=== PATIENT | male | born 1960 | race African-American/Black ===

== ENCOUNTER → 2024-06-27 | Day surgery (SDC) | payer MEDICAID ==
[~2024-06-27] VITALS: Ht 175.3 cm; Wt 93.4 kg
[~2024-06-27] MED LIST: BALANCED SALT IRRIG SOLN 15ML ONE; BALANCED SALT IRRIG SOLN COMB1 500ML OP NR; CYCLOPENTOLATE HCL 1% OPHTH DROPS 2ML LEFTEYE SCH; DULA1.5P SQ; EMPA25TA PO; GLIP5TAB22 PO; HYALURONATE SODIUM 10MG/ML 0.55ML SYRINGE IO ONE; HYDROMORPHONE HCL/PF 1MG/ML INJ IV PRN; METF-416 PO; MIDAZOLAM HCL 2 MG/2 ML VIAL ONE; ONDANSETRON HCL 4MG/2ML INJ IV PRN; PHENYLEPHRINE HCL 10% OPHTH DROPS 5ML LEFTEYE SCH; PROPOFOL 200MG/20ML VIAL IV ONE; SODIUM CHLORIDE 0.9% 1,000 ML IV SCH; SODIUM CHLORIDE 0.9% 500 ML IV NR; TROPICAMIDE 1% OPHTH DROPS 15ML LEFTEYE SCH; TRYPAN BLUE 0.5 ML DISP.SYRIN IO ONE
[2024-06-27] MEDS: SODIUM CHLORIDE 0.9% 500 ML IV ONE (11:39)
== END | disposition home or self-care (01) ==
LOC: OR 10:56
PROVIDERS: ATTEND Ophthalmology
DX: E11.36 Type 2 diabetes mellitus with diabetic cataract (principal); H25.89 Other age-related cataract; Z79.84 Long term (current) use of oral hypoglycemic drugs; Z79.899 Other long term (current) drug therapy; Z98.890 Other specified postprocedural states
CPT/HCPCS: 66984; 82962; J3490 ×2; J2003; J2250; J2704; Q9957; V2632

== ENCOUNTER → 2025-01-09 | Day surgery (SDC) | payer MEDICAID ==
[~2025-01-09] VITALS: Ht 175.3 cm; Wt 93.4 kg
[~2025-01-09] MED LIST changes: +ACETAZOLAMIDE SODIUM 500MG/VIAL IV ONE; -BALANCED SALT IRRIG SOLN 15ML ONE; -BALANCED SALT IRRIG SOLN COMB1 500ML OP NR; -CYCLOPENTOLATE HCL 1% OPHTH DROPS 2ML LEFTEYE SCH; -HYDROMORPHONE HCL/PF 1MG/ML INJ IV PRN; -MIDAZOLAM HCL 2 MG/2 ML VIAL ONE; -ONDANSETRON HCL 4MG/2ML INJ IV PRN; -PHENYLEPHRINE HCL 10% OPHTH DROPS 5ML LEFTEYE SCH; -SODIUM CHLORIDE 0.9% 500 ML IV NR; +TRIAMCINOLONE ACETONIDE 40MG/ML 1ML VIAL ONE; -TROPICAMIDE 1% OPHTH DROPS 15ML LEFTEYE SCH; -TRYPAN BLUE 0.5 ML DISP.SYRIN IO ONE
== END | disposition home or self-care (01) ==
LOC: OR 06:57
PROVIDERS: ATTEND Ophthalmology
DX: E11.39 Type 2 diabetes mellitus with other diabetic ophthalmic complication (principal); H40.89 Other specified glaucoma; I45.10 Unspecified right bundle-branch block; Z79.84 Long term (current) use of oral hypoglycemic drugs; Z79.899 Other long term (current) drug therapy; Z98.890 Other specified postprocedural states
CPT/HCPCS: 66170; 93005; 82962; J2704; J1120; J3301; J3490